=== PATIENT | male | born 1990 | race Asian ===

== ENCOUNTER 2024-02-23 18:36 | Emergency (ER) | payer BC ==
[~2024-02-23] VITALS: Ht 170.2 cm; Wt 56.7 kg
[2024-02-23 20:55] VITALS: BP 114/70; TEMP 98; O2SAT 100
== END 2024-02-23 20:56 | disposition home or self-care (01) ==
LOC: ER 18:38
DX: S10.11XA Abrasion of throat, initial encounter (principal); X58.XXXA Exposure to other specified factors, initial encounter; Y93.89 Activity, other specified; Y92.89 Other specified places as the place of occurrence of the external cause; Y99.8 Other external cause status
CPT/HCPCS: 70360; A4606; A4663